=== PATIENT | female | born 1995 | race Caucasian/White ===

== ENCOUNTER 2020-02-19 09:31 | Outpatient (CLI) | payer OTHER, SELFPAY ==
[2020-02-19 10:51] LABS: SARS-CoV-2 Ag Negative (Negative)
== END 2020-02-19 09:32 | disposition home or self-care (01) ==
PROVIDERS: PCP Family Medicine; Visit Provider Family Medicine
DX: J00 Acute nasopharyngitis [common cold] (principal); Z20.828 Contact with and (suspected) exposure to other viral communicable diseases
CPT/HCPCS: 87426

== ENCOUNTER → 2021-06-02 14:21 | Outpatient (CLI) | payer OTHER, SELFPAY ==
--- NOTE | ~2021-06-02 | US_ITS ---
US OB limited 06/02/2021 15:07 Indication: Low-lying placenta Procedure: Real-time Limited obstetrical ultrasound Comparison: No prior studies for comparison Findings: There is a single living intrauterine in vertex presentation. Placenta is anterio r measuring 5 cm to the cervix. Amniotic fluid is subjectively normal. heart rate is 149 BPM. Impression: 1: Anterior placenta measuring 5 cm from the cervix. No evidence for previa. Reviewed, dictated and finalized at location A. AL SHELTER CLERK Impression: 1: Anterior placenta measuring 5 cm from the cervix. No evidence for previa.
== END ==
PROVIDERS: Visit Provider Obstetrics & Gynecology
DX: O44.42 Low lying placenta NOS or without hemorrhage, second trimester (principal); Z3A.24 24 weeks gestation of pregnancy
CPT/HCPCS: 76815

== ENCOUNTER 2021-06-14 09:07 | Outpatient (CLI) | payer OTHER, SELFPAY ==
[2021-06-14 18:39] LABS: Basophils Percent Auto 0.3 % (0.2-1.2); Eosinophils Absolute Auto 0.1 K/mm3 (0-0.3); Eosinophils Percent Auto 0.7 % (0-4.4); Hematocrit 37.4 % (37.0-47.0); Hemoglobin 12.2 g/dL (12.0-15.0); Immature Granulocyte Absolute 0.03 K/mm3 (0.00-0.031); Immature Granulocyte Percent A 0.4 % (0-0.5); Lymphocytes Absolute Auto 1.55 K/mm3 (0.9-3.2); Lymphocytes Percent Auto 20.7 % (18.3-44.2); Mean Corpuscular HGB Conc 32.6 g/dl (32-36); Mean Corpuscular Hemoglobin 30.3 pg (26-34); Mean Corpuscular Volume 92.8 fl (80-100); Mean Platelet Volume 9.9 fl (7.4-10.4); Monocytes Absolute Auto 0.5 K/mm3 (0.1-0.6); Monocytes Percent Auto 6.9 % (2.6-8.5); Neutrophils Absolute Auto 5.3 K/mm3 (1.3-6.7); Platelet Count Result 315 k/mm3 (150-375); Red Blood Count 4.03 M/mm3 (4.2-5.4); Red Cell Distribution Width 13.8 % (11.5-14.5); White Blood Count 7.5 K/mm3 (4.5-10.0)
[2021-06-14 19:10] LABS: Glucose 1 Hour PP 50gm Dose 144 mg/dL
[2021-06-14 19:51] LABS: HIV 1/2 Ab P24 Ag Result Negative (Negative)
[2021-06-15 09:07] LABS: Rapid Plasma Reagin Non-Reactive (NonReactive)
== END 2021-06-14 09:08 | disposition home or self-care (01) ==
LOC: ANHBWCLAB 09:08
PROVIDERS: Visit Provider Obstetrics & Gynecology
DX: Z34.93 Encounter for supervision of normal pregnancy, unspecified, third trimester (principal); Z3A.28 28 weeks gestation of pregnancy
CPT/HCPCS: 36415; 82947; 85025; 86592; 86703; G0432

== ENCOUNTER 2021-06-24 13:43 | Outpatient (CLI) | payer OTHER, SELFPAY ==
[2021-06-24 14:20] LABS: Glucose Fasting Gestational 83 mg/dL (>/=95)
[2021-06-24 15:34] LABS: Glucose 1 Hour Gest 124 mg/dL (>/=180)
[2021-06-24 16:36] LABS: Glucose 2 Hour Gest 123 mg/dL (>/= 155)
[2021-06-24 17:53] LABS: Glucose 3 Hour Gest 138 mg/dL (>/=140)
== END 2021-06-24 13:44 | disposition home or self-care (01) ==
LOC: ANHLAB 13:45
PROVIDERS: Visit Provider Obstetrics & Gynecology
DX: R73.09 Other abnormal glucose (principal)
CPT/HCPCS: 36415; 82951; 82952

== ENCOUNTER 2021-07-29 13:26 | Outpatient (CLI) | payer OTHER, SELFPAY ==
[2021-07-29 17:43] LABS: Hematocrit 37.1 % (37.0-47.0); Mean Corpuscular HGB Conc 32.3 g/dl (32-36); Mean Corpuscular Hemoglobin 29.9 pg (26-34); Mean Corpuscular Volume 92.3 fl (80-100); Platelet Count Result 256 k/mm3 (150-375); Red Blood Count 4.02 M/mm3 (4.2-5.4); Red Cell Distribution Width 13.5 % (11.5-14.5); White Blood Count 5.4 K/mm3 (4.5-10.0)
== END 2021-07-29 13:27 | disposition home or self-care (01) ==
LOC: ANHBWCLAB 13:28
PROVIDERS: Visit Provider Student in an Organized Health Care Education/Training Program
DX: Z34.03 Encounter for supervision of normal first pregnancy, third trimester (principal); Z3A.00 Weeks of gestation of pregnancy not specified
CPT/HCPCS: 36415; 85027

== ENCOUNTER 2021-08-19 12:14 | Inpatient (IN) | payer OTHER, SELFPAY ==
[2021-08-19] VITALS (54 sets, daily range): BP systolic 73–144; BP diastolic 43–122; PULSE 73–184; TEMP 36.2–36.6; O2SAT 98–100; BMI 44.5
[2021-08-19 13:44] LABS: Basophils Percent Auto 0.1 % (0.2-1.2); Eosinophils Percent Auto 0.4 % (0-4.4); Hematocrit 36.4 % (37.0-47.0); Hemoglobin 12.3 g/dL (12.0-15.0); Immature Granulocyte Absolute 0.02 K/mm3 (0.00-0.031); Immature Granulocyte Percent A 0.3 % (0-0.5); Lymphocytes Absolute Auto 1.84 K/mm3 (0.9-3.2); Lymphocytes Percent Auto 27.4 % (18.3-44.2); Mean Corpuscular HGB Conc 33.8 g/dl (32-36); Mean Corpuscular Hemoglobin 29.8 pg (26-34); Mean Corpuscular Volume 88.1 fl (80-100); Mean Platelet Volume 9.7 fl (7.4-10.4); Monocytes Absolute Auto 0.7 K/mm3 (0.1-0.6); Neutrophils Absolute Auto 4.2 K/mm3 (1.3-6.7); Neutrophils Percent Auto 61.8 % (45.5-73.1); Platelet Count Result 288 k/mm3 (150-375); Red Blood Count 4.13 M/mm3 (4.2-5.4); Red Cell Distribution Width 13.2 % (11.5-14.5); White Blood Count 6.7 K/mm3 (4.5-10.0)
--- NOTE | 2021-08-19 14:02 | LDADM ---
This patient, Brie Conde, was admitted to Labor/Delivery/Recovery 105 on 08/19/21 at 12:14. Plans for labor, pain management and were discussed with patient. Patient/family oriented to hospital policies and general routines including ID bracelet, bed and alarms, visiting hours, pain management, procedures, bathroom and other care routines, personal items, smoking policy, room service/diet and guest tray routines, infant security routines, and visiting hours. Patient/Family are encouraged to report perceived risks to care and to ask questions if they do not understand what they are told or what they should do. See OBIX for further documentation.
[2021-08-19] MEDS: LACTATED RINGERS 1,000 ML 125 ML IV CONT ×2 (15:13→20:49)
[2021-08-19] MEDS: OXYTOCIN 30 UNITS/NS 500 ML 30 UNITS/500 ML BAG IV CONT (15:13)
--- NOTE | 2021-08-19 16:20 | PM.IMHP ---
H&P: HPI History of Present Illness Date/Time: 08/19/21 16:20 Patient 25-year-old LMP 11/30/2020 currently 37 weeks 3 days gestation with IRAJ 09/06/2021. Patient is dated by LMP consistent with ultrasound on 01/18/2021 at 7 weeks gestation. Patient presented to labor and delivery with complaints of leakage of fluid. Patient reports noticing leakage of fluid at approximately 9:00 a.m. Clear fluid noted. She denies any contractions or vaginal bleeding. Reports good movement. Upon presentation to labor and delivery, patient was noted to be grossly ruptured and approximately 1 cm dilated. Decision was made to admit patient to labor and delivery.. Chief Complaint: IUP at 37w3d gestation PROM Review of Systems Review of Systems: All systems reviewed & are unremarkable except as noted in HPI and below Constitutional: Constitutional: Reports as per HPI, Reports no additional constitutional complaints, Denies chills, Denies fever(s), Denies headache(s) and Denies night sweats Eyes: Eyes: Reports as per HPI and Reports no additional eye complaints ENT: Reports system reviewed and no additional complaints, except as documented, Reports as per HPI, Reports Normal hearing present and Denies headache(s) Cardiovascular: Cardiovascular: Reports as per HPI, Reports no additional cardiovascular complaints, Denies chest pain and Denies dyspnea Respiratory: Respiratory: Reports as per HPI, Reports no additional respiratory complaints, Denies cough and Denies dyspnea Gastrointestinal: Gastrointestinal: Reports as per HPI, Reports no additional gastrointestinal complaints, Denies abdominal pain, Denies change in bowel habits, Denies change in stool character, Denies nausea and Denies vomiting Genitourinary: Genitourinary: Reports no additional female genitourinary complaints, Reports as per HPI, Denies abnormal vaginal bleeding, Denies genital lesions, Denies hot flashes, Denies dyspareunia, Denies pelvic pain, Denies sexual dysfunction, Denies urinary incontinence, Denies vaginal discharge, Denies vaginal dryness and Denies vaginal odor Musculoskeletal: Musculoskeletal: Reports no additional musculoskeletal complaints and Reports as per HPI Integumentary/Breasts: Skin/Breast: Reports system reviewed and no additional complaints, except as docu, Reports as per HPI, Denies breast pain and Denies nipple discharge Neurologic: Reports system reviewed and no additional complaints, except as documented, Reports as per HPI, Reports Normal hearing present and Denies headache(s) Psychiatric: Psychiatric: Reports no additional psychiatric complaints, Reports as per HPI, Denies anxiety and Denies depression Endocrine: Endocrine: Reports no additional endocrine complaints and Reports as per HPI Hematologic/Lymphatic: Hematologic/Lymphatic: Reports no additional hematologic/lymphatic complaints and Reports as per HPI Allergic/Immunologic: Allergic/Immunologic: Reports no additional allergic/immunologic complaints and Reports as per HPI [facility] Surgical History Surgical History History of cholecystectomy 2012? Family History Family History Father Hypertension Social History Social History Smoking status: Never smoker Second hand tobacco smoke exposure: No Alcohol intake: never Substance use: never Spiritual care concerns: No Meds Home Medications and Allergies Home Medications Medication Instructions Recorded Confirmed Type vit with calcium-iron 1 tablet PO DAILY 01/27/21 08/13/21 History fum-folic acid 27 mg-1 mg tablet famotidine 20 mg tablet 20 mg PO DAILY 02/21/21 08/13/21 History cholecalciferol (vitamin D3) 125 125 mcg PO DAILY 03/22/21 08/13/21 History mcg (5,000 unit) capsule diphenhydramine HCl 25 mg capsule 25 mg PO TID PRN 03/22/21 08/13/21 History
--- NOTE | 2021-08-19 16:24 | WPDHPUPDATE1 ---
History and Physical Update Update Date/Time: 08/19/21 16:24 History and Physical has been reviewed, including an updated exam of the patient. There are NO changes in the patient's condition. Risks, benefits, and alternatives have been discussed and questions answered. Patient agrees to proceed with procedure.
--- NOTE | 2021-08-19 18:31 | WPDANESEPP ---
Anes - Eval Pre Procedure Procedure: Labor epidural Date/Time: 08/19/21 18:31 Surgeon: Jatinder Preop Diagnosis: Abd pain with contractions Pre Op Diagnosis: Ruptured Membrane Patient Data Age: 25 Gender: F Height: 1.7 m Weight: 129 kg Last Vital Signs Temp 97.4 F L 08/19/21 18:16 Pulse 99 08/19/21 18:16 BP 122/88 08/19/21 18:16 Allergies Allergy/AdvReac Type Severity Reaction Status Date / Time No Known Allergies Allergy Verified 08/18/21 08:07 Home Medications Medication Instructions Recorded Confirmed Type famotidine 20 mg tablet (Pepcid) 20 mg PO DAILY 02/21/21 08/13/21 History cholecalciferol (vitamin D3) 125 125 mcg PO DAILY 03/22/21 08/13/21 History mcg (5,000 unit) capsule docusate sodium 100 mg capsule 100 mg PO BID PRN Constipation #60 08/22/21 Rx caps ferrous sulfate 325 mg (65 mg 325 mg PO BID #60 tabs 08/22/21 Rx iron) tablet Laboratory Tests 08/19/21 08/19/21 08/19/21 13:37 13:37 13:37 WBC 6.7 K/mm3 K/mm3 (4.5-10.0) RBC 4.13 M/mm3 L M/mm3 (4.2-5.4) Hgb 12.3 g/dL g/dL (12.0-15.0) Hct 36.4 % L % (37.0-47.0) MCV 88.1 fl fl (80-100) MCH 29.8 pg pg (26-34) MCHC 33.8 g/dl g/dl (32-36) RDW 13.2 % % (11.5-14.5) Plt Count 288 k/mm3 k/mm3 (150-375) MPV 9.7 fl fl (7.4-10.4) Immature Gran % (Auto) 0.3 % % (0-0.5) Neut % (Auto) 61.8 % % (45.5-73.1) Lymph % (Auto) 27.4 % % (18.3-44.2) [place] % (Auto) 10.0 % H % (2.6-8.5) Eos % (Auto) 0.4 % % (0-4.4) Baso % (Auto) 0.1 % L % (0.2-1.2) Lymph # (Auto) 1.84 K/mm3 K/mm3 (0.9-3.2) [place] # (Auto) 0.7 K/mm3 H K/mm3 (0.1-0.6) Eos # (Auto) 0.0 K/mm3 K/mm3 (0-0.3) Baso # (Auto) 0.0 K/mm3 K/mm3 (0.0-0.1) Abs Immat Gran (auto) 0.02 K/mm3 K/mm3 (0.00-0.031) Absolute Neuts (auto) 4.2 K/mm3 K/mm3 (1.3-6.7) Absolute Nucleated RBC 0.0 K/mm3 K/mm3 (0.0-0.012) Nucleated RBC % 0.0 % % (0.0-0.2) RPR Pending Blood Type O Positive Antibody Screen Negative Patient hx anesthesia problems: none Family hx anesthesia problems: none Results Review: All pre-operative results and documents have been reviewed as part of the pre-operative evaluation. [facility] Past Medical History Medical History (Updated 08/22/21 @ 09:06 by Hay Ybarra MD) Morbid obesity Obesity affecting and not yet delivered Surgical History Surgical History History of cholecystectomy 2012? Family History Family History Father Hypertension Social History Social History Smoking status: Never smoker Second hand tobacco smoke exposure: No Alcohol intake: never Substance use: never Spiritual care concerns: No Exam Day of Procedure 08/19/21 18:31
[2021-08-19] MEDS: fentaNYL CITRATE INJ (*CRX) 100 MCG/2 ML VIAL 50 MCG IV PUSH ×2 (20:49→21:12)
[2021-08-19] MEDS: ONDANSETRON INJ 4 MG/2 ML VIAL IV PUSH (23:06)
[2021-08-20] VITALS (72 sets, daily range): BP systolic 79–149; BP diastolic 45–95; PULSE 68–127; RESP 14–20; TEMP 36.2–36.9; O2SAT 96–100
[2021-08-20] MEDS: AMPICILLIN 2 GM/NS 100 ML 2 GM/100 ML BAG IVPB (03:12)
[2021-08-20] MEDS: FAMOTIDINE 20 MG/2 ML VIAL IV PUSH (04:47)
[2021-08-20] MEDS: METHYLERGONOVINE MALEATE 0.2 MG/ML VIAL IM (06:10)
[2021-08-20] MEDS: miSOPROStol 200 MCG TABLET 1000 MCG RECTAL (06:13)
[2021-08-20] MEDS: TRANEXAMIC ACID 1,000 MG/10 ML AMPUL 1000 MG IV PUSH (06:17)
[2021-08-20] MEDS: fentaNYL CITRATE INJ (*CRX) 100 MCG/2 ML VIAL IV PUSH (06:17)
[2021-08-20 06:37] LABS: Basophils Percent Auto 0.2 % (0.2-1.2); Hematocrit 35.1 % (37.0-47.0); Hemoglobin 11.6 g/dL (12.0-15.0); Immature Granulocyte Absolute 0.05 K/mm3 (0.00-0.031); Immature Granulocyte Percent A 0.5 % (0-0.5); Lymphocytes Absolute Auto 1.39 K/mm3 (0.9-3.2); Lymphocytes Percent Auto 14.3 % (18.3-44.2); Mean Corpuscular Hemoglobin 29.7 pg (26-34); Mean Platelet Volume 9.8 fl (7.4-10.4); Monocytes Absolute Auto 0.9 K/mm3 (0.1-0.6); Monocytes Percent Auto 8.8 % (2.6-8.5); Neutrophils Absolute Auto 7.4 K/mm3 (1.3-6.7); Neutrophils Percent Auto 76.2 % (45.5-73.1); Platelet Count Result 273 k/mm3 (150-375); Red Cell Distribution Width 13.3 % (11.5-14.5); White Blood Count 9.7 K/mm3 (4.5-10.0)
[2021-08-20 06:47] LABS: INR 1.1; Prothrombin Time 14.1 Seconds (11.1-14.7)
[2021-08-20 06:48] LABS: Fibrinogen 567 mg/dl (215-510); Partial Thromboplastin Time 30.8 SECONDS (22.3-36.8)
--- NOTE | 2021-08-20 07:10 | PM.OBPRVD ---
OB - Delivery Note Procedure Delivery date: 08/20/21 Procedure: Spontaneous vaginal delivery Delivery augmentation: Pitocin Delivery monitor: External FHT, External Uterine and Internal Uterine Route of delivery: Specimen: Yes (Placenta) Quantitative Blood Loss (ml): 1,449 Anesthesia type: Epidural Disposition: Other Complications: hemorrhage Narrative: Patient admitted to L and D after confirmation of gross rupture of membranes. Cervix on admission 1cm. No active labor by 6 hours from rupture of membranes. Pitocin augmentation started. She had IUPC placed. She progressed to active labor. She progressed to complete. She delivered a female . Placenta delivered spontaneously and intact. Her uterine tone was not optimal and she had bleeding despite uterine massage and Pitocin. She was given Methergine 0.2mg IM, initially tone improved for a short period. The uterus was swiped and clot was removed. She was given 1000ug cytotec rectally. The cervix was inspected and no obvious laceration visualized. She continued to have bleeding. Hemorrhage team activated. TXA was administered. Fentanyl was given for pain control and a currettage with Reuben jimenez performed. Clot obtained. Uterus intermittent boggy. Bleeding continued. Bakri balloon was placed able to instill 150cc. Bleeding improved but still oozing. CBC and coags drawn. She was recommended to be taken to OR for currettage. Discussed risk benefit of currettage and risk of hysterectomy, she agreed to procedure. Baby Date of : 08/20/21 Time of : 05:57 Weeks of gestation at delivery: 37 Infant gender: Female Weight (pounds): 7 Weight (ounces): 10 presentation: compound (right hand) position: Right Occiput Anterior Placenta delivery description: Spontaneous, Uterine Exploration and Curettage Cord Vessel Description: Around Extremity (once around leg) score one minute: 8 score five minutes: 9
[2021-08-20] MEDS: LACTATED RINGERS 1,000 ML 125 ML IV CONT (07:16)
[2021-08-20] MEDS: TRANEXAMIC ACID 1,000MG/ISO100 1,000 MG/100 ML BAG 600 MG IVPB (08:08)
[2021-08-20] MEDS: ceFAZolin 3 GM/D5W 100 ML 100 ML IVPB (08:11)
--- NOTE | 2021-08-20 08:50 | W.PM.PROC2 ---
Procedure Note - Detailed Date of Procedure 08/20/21 Pre-op Diagnosis hemorrhage Post-op Diagnosis Same Procedure Performed Suction dilation and currettage Surgeon Hay Ybarra MD Anesthesia Epidural Indications hemorrhage Findings Possible retained fragment placenta Description of Procedure After informed consent was obtained. Patient was taken to the OR and adequate epidural anesthesia was administered. She was placed in high lithotomy position and prepped and draped in sterile fashion. The Bakri balloon was removed. Weighted speculum and retractors placed in vagina. Once adequate visualization obtained the anterior lip of cervix grasped with ring forceps and posterior cervix grasped with ring forceps. The currettage was passed and there was adherent clot/tissue posterior with several passes. The suction currette was passed three times and tissue obtained and then there was improvement of tone and minimal bleeding. The cervix was inspected, no laceration. There was a linear area of bleeding on right outer vaginal wall where the retractor was and hemostasis obtained with several figure of eight sutures of 3.0 vicryl. Cervix inspected again. Hemostasis noted. No active bleeding. External uterine fundal massage and minimal bleeding. Uterus firm. Patient tolerated procedure well. Estimated Blood Loss 100 IV Fluids 700 Urine Output 125 Drains No Packing No Pathology Yes (Retained tissue) Complications No immediate complications Condition Stable Disposition PACU [facility] Billing Surgery - Charge Forward: Surgery Billing
[2021-08-20] MEDS: LACTATED RINGERS 1,000 ML 30 ML IV CONT (08:56)
--- NOTE | 2021-08-20 08:59 | SUR.OPER ---
rivas pad checked end of surgery per surgeon 1 area light pink on pad. uterus at umbilicous.
--- NOTE | 2021-08-20 09:24 | SUR.OPER ---
ebl 100 urine 150ml yellow clear
[2021-08-20] MEDS: METHYLERGONOVINE MALEATE 0.2 MG TABLET PO ×3 (09:45→21:28)
--- NOTE | 2021-08-20 10:56 | OBPPTRN ---
1008 Patient transferred to post room #292 via bed. Support person present. Oriented to unit, room, information board, rooming in, admission packet and security measures. Patient verbalizes understanding.
[2021-08-20] MEDS: ACETAMINOPHEN 325 MG TABLET 650 MG PO (13:33)
[2021-08-20 13:57] LABS: Hematocrit 27.5 % (37.0-47.0); Mean Corpuscular HGB Conc 32.7 g/dl (32-36); Mean Corpuscular Hemoglobin 29.6 pg (26-34); Mean Corpuscular Volume 90.5 fl (80-100); Mean Platelet Volume 10.1 fl (7.4-10.4); Platelet Count Result 257 k/mm3 (150-375); Red Blood Count 3.04 M/mm3 (4.2-5.4); Red Cell Distribution Width 13.3 % (11.5-14.5); White Blood Count 12.9 K/mm3 (4.5-10.0)
[2021-08-20] MEDS: POLYSACCHARIDE IRON COMPLEX 150 MG CAPSULE PO (16:18)
[2021-08-20] MEDS: DOCUSATE SODIUM 100 MG CAPSULE PO (16:18)
[2021-08-20] MEDS: IBUPROFEN 600 MG TABLET PO (16:25)
[2021-08-20] MEDS: WITCH HAZEL 40 PADS 1 PAD TOPICAL (16:27)
[2021-08-20] MEDS: BENZOCAINE 20% AER SPR (*SP) 56 GM CAN 1 SPRAY TOPICAL (16:27)
[2021-08-21 04:10] VITALS: BP 110/51; PULSE 103; RESP 16; TEMP 36.6
[2021-08-21] MEDS: IBUPROFEN 600 MG TABLET PO (04:23)
[2021-08-21 04:38] LABS: Hematocrit 23.3 % (37.0-47.0); Hemoglobin 7.5 g/dL (12.0-15.0)
--- NOTE | 2021-08-21 09:16 | P.PNOB_ITS ---
OB - PN: Subj Subjective Date/time seen: 08/21/21 09:16 She has ambulated no dizziness. Lochia light. No leg pain or chest pain or SOB. Has fatigue. Patient comments: pain well controlled, tolerating diet and other (Decreasing lochia.) baby status: doing well OB - PN: Obj Data Labs CBC & Chem 7: 08/21/21 04:16 Labs: Laboratory Results - last 24 hr 08/20/21 08/21/21 13:42 04:16 WBC 12.9 H RBC 3.04 L Hgb 9.0 L 7.5 L Hct 27.5 L 23.3 L MCV 90.5 MCH 29.6 MCHC 32.7 RDW 13.3 Plt Count 257 MPV 10.1 OB - PN A/P Assessment and Plan (1) Delivery normal: Code(s): O80 - Encounter for full-term uncomplicated delivery Status: Acute Assessment and Plan: PPD 1 doing well. (2) hemorrhage: Code(s): O72.1 - Other immediate hemorrhage Status: Acute Assessment and Plan: Normal lochia. No active bleeding. (3) Anemia: Code(s): D64.9 - Anemia, unspecified Status: Acute Assessment and Plan: Asymptomatic. Continue iron supplementation. Plan day: 1 Plan: routine care Comments: Patient doing well. Time Spent With Patient Time: Total time spent is greater than 50% in coordination of care (as document ed) at patient's floor/unit and/or counseling patient: Exam Psych: Affect: normal affect Other: Abd: fundus firm below umbilicus, appropriate tenderness Perineum: healing Ext: nontender
[2021-08-21] MEDS: DOCUSATE SODIUM 100 MG CAPSULE PO ×2 (09:27→16:05)
[2021-08-21] MEDS: POLYSACCHARIDE IRON COMPLEX 150 MG CAPSULE PO ×2 (09:27→16:05)
[2021-08-21 09:30] VITALS: BP 100/57; PULSE 96; RESP 16; TEMP 36.7; O2SAT 100; O2SAT 99
[2021-08-21] MEDS: ACETAMINOPHEN 325 MG TABLET 650 MG PO (17:21)
--- NOTE | 2021-08-21 17:54 | PC.NURSE ---
3980 Patient viewed the discharge video Mother & Baby Care, The First Two Weeks . Patient was given the opportunity and encouraged to ask questions. Patient verbalized understanding of information shared and has been given the mother/baby guide for home reference.
[2021-08-21 18:40] VITALS: BP 120/60; PULSE 90; RESP 16; TEMP 36.2; O2SAT 100
[2021-08-22 06:16] LABS: Rapid Plasma Reagin Non-Reactive (NonReactive)
[2021-08-22 08:00] VITALS: BP 107/63; PULSE 87; RESP 16; TEMP 36.2; O2SAT 99
[2021-08-22] MEDS: MEASLES,MUMPS,RUBELLA VACCINE 0.5 ML VIAL SUB-Q (08:15)
[2021-08-22] MEDS: DOCUSATE SODIUM 100 MG CAPSULE PO ×2 (08:16→16:07)
[2021-08-22] MEDS: ACETAMINOPHEN 325 MG TABLET 650 MG PO (08:16)
[2021-08-22] MEDS: POLYSACCHARIDE IRON COMPLEX 150 MG CAPSULE PO ×2 (08:16→16:06)
--- NOTE | 2021-08-22 09:03 | PM.OBPNVD ---
OB - PN: Subj Subjective Date/time seen: 08/22/21 09:03 She states she feels good. Ambulating well, no lightheadedness or dizziness, mild lochia. No leg pain, no abdominal pain. Patient comments: pain well controlled, tolerating diet and other (Decreasing lochia.) baby status: doing well OB - PN: Obj Data Labs CBC & Chem 7: 08/21/21 04:16 Labs: Laboratory Results - last 24 hr 08/19/21 13:37 RPR Non-reactive OB - PN A/P Plan Plan: routine care Comments: Patient doing well. PPD2. Asymptomatic anemia. Iron therapy. Will discharge home today. Discharge precautions discussed. Time Spent With Patient Time: Total time spent is greater than 50% in coordination of care (as documented) at patient's floor/unit and/or counseling patient: Exam Psych: Affect: normal affect Other: Abd: fundus firm below umbilicus, nontender Perineum: healing Ext: nontender
--- NOTE | 2021-08-22 09:05 | PM.OBDSVD ---
DS: Admitting Diagnosis Discharge Date 08/22/21 Admitting Diagnosis Premature rupture of membranes DS: Discharge Diagnosis Discharge Diagnosis (1) Delivery normal: Code(s): O80 - Encounter for full-term uncomplicated delivery Status: Acute (2) Anemia: Code(s): D64.9 - Anemia, unspecified Status: Acute (3) hemorrhage: Code(s): O72.1 - Other immediate hemorrhage Status: Acute OB - DS: Summary Hospital Course Hospital Course: Patient admitted for Premature rupture of membranes. She had pitocin augmentation. She had a vaginal delivery complicated by hemorrhage, possible retained placenta, path pending. she did well. She had asymptomatic anemia. day 1 H/H 10/22 which was consisted with her EBL. Baby was doing well. Patient ambulating without problems, no hypovolemic symptoms. She was discharged to home on PPD2. OB Procedures : Ultrasound OB Procedures Intrapartum: Spontaneous Vag Delivery, Uterine exploration, Curettage and Retained placenta OB Procedures: : None and Curettage Peripartum Data Delivery Method: Natural Vaginal Procedures: Procedures Operation Date: 08/20/21 07:45 Actual Procedure Side Surgeon p D&C Suction and Sharp Not Applicable Hay Ybarra MD complications: none and other ( hemorrhage) Status at Discharge Functional status at discharge: independent ambulation Time Spent with Patient Time attestation: Total time spent providing and/or coordinating discharge services: Exam Const: General: cooperative Orientation/consciousness: oriented to person, oriented to place and oriented to time HENMT: General nose exam: Normal external nose present Eyes: General: appearance normal, both eyes and all related structures Resp: Effort & Inspection: normal respiratory effort GI: Inspection: normal to inspection Neuro: General: oriented to person, oriented to place and oriented to time Extrem: General: normal to inspection and no calf tenderness Psych: Appearance: grossly normal Mental Status: mental status grossly normal DS: Data Data Completed and Pending Pending studies at discharge: Pending at discharge 08/20/21 06:06 Surgical [PTH] Routine 08/20/21 08:37 Surgical [PTH] Routine Labs on day of discharge: Labs from last 24 hours 08/19/21 13:37 RPR Non-reactive Discharge Plan Discharge Attending physician on discharge: Randee Tobias Consulting providers: Pedrito Hurtado Discharging Clinician: Hay Ybarra Anticipated Discharge Date/Time: 08/22/21 09:08 Patient Disposition: Home, Self-Care Activity: may shower, no straining and pelvic rest Diet: regular Discharge Instructions: Pelvic rest for 4-6 weeks. May take over the counter Ibuprofen or Tylenol for pain. Call if saturating more than a pad an hour, leg redness, pain and swelling, temperature>100.4. No strenuous activity. Patient Instructions: Antibiotic Form Stand Alone Forms: General Discharge Information Follow-up/Referrals: Randee Tobias MD [Physician] - Call for Appointment (Follow up in two weeks) Discharge Medications: New ferrous sulfate 325 mg (65 mg iron) tablet 325 mg PO BID Qty: 60 RF: 0 docusate sodium 100 mg Capsule 100 mg PO BID PRN (Reason: Constipation) Qty: 60 RF: 0 No Action famotidine [Pepcid] 20 mg tablet 20 mg PO DAILY RF: 0 vit-iron fum-folic ac 27-1 mg tablet 1 tablet PO DAILY RF: 0 diphenhydramine HCl [Benadryl] 25 mg capsule 25 mg PO TID PRN (Reason: Cold Symptoms) RF: 0 cholecalciferol (vitamin D3) 125 mcg (5,000 unit) capsule 125 mcg PO DAILY RF: 0 Date of admission: 08/19/21 12:14 Primary Care Provider: PHYSICIAN NOT ON STAFF,NONSTAFF Admitting Provider: Randee Tobias Attending physician on admission: Randee Tobias Condition: Stable
[2021-08-22] MEDS: IBUPROFEN 600 MG TABLET PO (16:07)
[2021-08-24 10:45] VITALS: BP 111/71; PULSE 93; RESP 20; TEMP 36.6; O2SAT 100
== END 2021-08-22 16:30 | disposition home or self-care (01) | DRG 768 ==
LOC: ANHOB2 08-22 14:21 → ANHLDR 08-23 11:58 → ANHOB2 08-23 11:58
PROVIDERS: Admitting Provider Student in an Organized Health Care Education/Training Program; Visit Provider Obstetrics & Gynecology
PROC: 10E0XZZ Delivery of Products of Conception, External Approach (ICD-10-PCS; 2021-08-20 07:45)
DX: O76 Abnormality in fetal heart rate and rhythm complicating labor and delivery (principal); Z37.0 Single live birth; O72.1 Other immediate postpartum hemorrhage; O32.6XX0 Maternal care for compound presentation, not applicable or unspecified; O69.81X0 Labor and delivery complicated by cord around neck, without compression, not applicable or unspecified; Z3A.37 37 weeks gestation of pregnancy
CPT/HCPCS: 36415; 84112; 85014; 85018; 85025; 85027; 85380; 85384; 85610; 85730; 86592; 86850; 86900; 86901; 88305; 88307; 90710; A9270; J0290; J0690; J2210; J2405; J2590; J2795; J3010; J7120

== ENCOUNTER 2025-03-11 13:59 | Outpatient (CLI) | payer OTHER, SELFPAY ==
[2025-03-11 14:43] LABS: Hematocrit 36.2 % (37.0-47.0); Hemoglobin 12.2 g/dL (12.0-15.0); Mean Corpuscular HGB Conc 33.7 g/dl (32-36); Mean Corpuscular Hemoglobin 29.7 pg (26-34); Mean Corpuscular Volume 88.1 fl (80-100); Platelet Count Result 290 k/mm3 (150-375); Red Blood Count 4.11 M/mm3 (4.2-5.4); White Blood Count 7.4 K/mm3 (4.5-10.0)
[2025-03-11 15:09] LABS: Alanine Aminotransferase 12 U/L (6-35); Albumin Level 3.7 g/dL (3.5-5.1); Alkaline Phosphatase 102 U/L (38-126); Aspartate Amino Transferase 27 U/L (14-36); Bilirubin,Total 0.3 mg/dL (0.2-1.3); Total Protein 7.5 g/dL (6.3-8.2)
[2025-03-11 15:46] LABS: Syphilis IgG/IgM Antibody Non-Reactive (Nonreactive)
[2025-03-11 15:47] LABS: HIV 1/2 Ab P24 Ag Result Negative (Negative)
[2025-03-11 15:48] LABS: Hepatitis B Surface Antigen Negative (Negative)
--- OUTSIDE RECORDS SUMMARY | 2025-03-11 18:28 | XMS_ITS | Clinical Summary ---
Author Organization [facility] Address [address] [place] [id number] Phone Care Team Providers Care Supervisor Laundry Name Role Phone Unavailable Primary Care Provider Unavailabl e Social History Tobacco Use Types Packs/Day Years Used Date Smoking Tobacco: Never Assessed Comments Unknown Sex and Gender Information Value Date Recorded Sex Assigned at Not on file Legal Sex Female 10:59 AM CDT Gender Identity Not on file Sexual Orientation Not on file Plan of Treatment Health Maintenance Due Date Last Done Comments DTAP/TDAP/TD VACCINES (1 - Tdap) 2013 HEPATITIS B VACCINES (1 of 3 - 19+ 3-dose series) 09/01 HPV/Cotest (21-29) 09/25/2015 CERVICAL CANCER SCREENING 2024 HPV/Cotest (30-65) 2024 PAP SMEAR 2024 INFLUENZA VACCINE (#1) 2024 HPV VACCINES (No Doses Required) Completed Insurance [facility] OPEN ACCESS O
--- OUTSIDE RECORDS SUMMARY | 2025-03-11 18:29 | XMS_ITS | Clinical Summary ---
Author Organization [facility] Healthcare Address [address] [place] [id number] Care Team Providers Care Knifeman Name Role Phone No, Physician Primary Care Provider [phone] No, Physician Unavailable Allergies No known active allergies Medications letrozole (FEMARA) 2.5 mg tablet Take 4 tablets (10 mg total) by mouth daily 4 Active metFORMIN XR (GLUCOPHAGE XR) 500 mg 24 hr tablet Take 1 tablet (500 mg total) by mouth daily with breakfast 4 Active progesterone (PROMETRIUM) 100 mg capsule 4 Active Active Problems Problem Noted Date Diagnosed Date Uterine septum 12/22/2024 Overview (12/22/2024): 12/22/24- possible with baby on the left. Estimated Date of Delivery Comme nts Yes 07/17/2025 Based on last me nstrual period of 10/10/2024 Encounters Date Type Department Care Team Description 12/22/2024 Results Follow-Up [facility] at [address] [address] Deyanira Braga MD US Ob Under 14 Weeks 12/12/2024 8:30 AM CDT Ancillary Procedure [facility] [address] [place] [address] [address] [place] [address] Encounter to establish gestational age using ultrasound from Last 3 Months Surgical History Surgery Date Site/Laterality Comments CHOLECYSTECTOMY 2012 Family History Medical History Relation Name Comments Colon cancer Maternal Grandmother Relation Name Status Comments Maternal Grandmother Social History Tobacco Use Types Packs/Day Years Used Date Smoking Tobacco: Never Tobacco Cessation:Counseling Given: Not Answered Humiliation, Afraid, Rape, and Kick questionnair e Answer Date Recorded Within the last year, have y ou been afraid of your partner or ex-partner? No 01/21/2024 Within the last year, have y ou been humiliated or emotionally abused in other ways by your partner or ex-partner? No Within the last year, have y ou been kicked, hit, slapped, or otherwise physically hurt by your partner or ex-partner? No 01/21/2024 Within the last year, have y ou been raped or forced to have any kind of sexual activity by your partner or ex-partner? No 01/21/2024 AUDIT-C Answer Date Recorded Q1: How often do you have a drink containing alc ohol? Never 01/21/2024 Average Number of Drinks Not on file 024 Frequency of Binge Drinking Not on file 01/01 PHQ-2 Answer Date Recorded PHQ-2 Total Score (If total score is 3 or more points, staff should administer the PHQ-9) 0 01/21/2024 Personal Safety Answer Date Recorded Getting School Help Needed Not on file 06/16 Estimated Date of Delivery Comme nts Yes 07/17/2025 Based on last me nstrual period of 10/10/2024 Sex and Gender Information Value Date Recorded Sex Assigned at Not on file Legal Sex Female 2:04 PM [employer] Gender Identity Not on file Sexual Orientation Not on file Obstetrics History Para Term AB IAB SAB Ectopic Multiple Livin g Live Births 2 1 1 1 1 Date Outcome GA Total Labor Labor/2nd/3rd Weight Sex Type Anes PTL Erika A1 A5 Name Clin 08/19 Term 37w 0d F Vaginal Living Current [facility]. Summary Episode Dates Number of Fetuses Estimated Date of Delivery 12/22/2024 - Present (03/11/2025) 07/17/2025 (set by Alia Oh MA on 12/22/2024 based on Last Menstrual Period on 10/10/2024) Dating Summary Based On IRAJ GA Diff Last Menstrual Period on 10/10/2024 07/17/2025 Working Ultrasound on 12/12/2024 07/17/2025 Same [id number] Last Filed Vital Signs Vital Sign Reading Time Taken Comments Blood Pressure 118/60 01/21/2024 1:59 PM CDT Pulse - - Temperature - - Respiratory Rate - - Oxygen Saturation - - Inhaled Oxygen Concentration - - Weight 109.8 kg (242 lb) 01/21/2024 1:59 PM CDT Height 162.6 cm (5' 4) 01/21/2024 1:59 PM CDT Body Mass Index 41.54 01/21/2024 1:59 PM CDT Plan of Treatment Health Maintenance Due Date Last Done Comments Hepatitis C Screening 1994 Varicella Vaccines (1 of 2 - 13+ 2-dose series) 09/25/2007 Pneumococcal vaccine <65 (1 of 2 - PCV) 2013 Zoster Vaccine (1 of 2) 2013 HPV Vaccines (1 - 3-dose SCD M series) 2021 Covid-19 Vaccine (4 - 2024-2 6 season) 2024 06/14/2021, 06/14/2021, 05/19/2020, Additional history exists Influenza Vaccine (#1) 2024 03/16/2021 Cervical Cancer Screening 01/20/2025 01/21/2024 Depression Screening 01/20/2025 01/21/2024 Regular Well Visit/Exam 18-64 01/20/2025 01/21/2024 DTaP/Tdap/Td Vaccine (5 - Td or Tdap) 06/15/2031 06/14/2021, 12/17/2012, 08/06/2001, Additional history exists Hepatitis B Screening Completed 01/16/1997 , 03/16/1995, 1994 Procedures Procedure Name Priority Date/Time Associated Diagnosis Comments US OB UNDER 14 WEEKS Schedule Routine, Read Routine (OP Routine) 12/12/2024 8:24 AM CDT Encounter to establish gestational age using ultrasound PAP, REFLEX HPV Routine 01/21/2024 3:04 PM CDT Well woman exam from Last 3 Months or Most Recently Relevant to Health Maintenance Results * US Ob Under 14 Weeks (12/12/2024 8:24 AM CDT) Anatomical Region Laterality Modality Abdomen N/A Ultrasound 12/12/2024 9:04 AM CDT Impressions 12/22/2024 2:29 PM CDT 1. There is a single IUP at 9.0 weeks with an EDC of 07/17/24. 2. The uterus is possibly septated with the on the left. 3. The right ovary contains a simple cyst that is most likely a corpus luteum. Normal appearing left ovary. Narrative Procedure Note Deyanira Braga MD - 12/22/2024 IMPRESSION: 1. There is a single IUP at 9.0 weeks with an EDC of 07/17/24. 2. The uterus is possibly septated with the on the left. 3. The right ovary contains a simple cyst that is most likely a corpusluteum. Normal appearing left ovary. us Deyainra Braga MD IMG OB US PROCEDURE S Final Result * Pap, reflex HPV (01/21/2024 3:04 PM CDT) CLINICAL INFORMATION: Car Ashley Comment:SCREENING LMP Car Ashley Comment:[id number] Previous Pap Car Ashley Comment:NONE GIVEN Prev. Bx Car Ashley Comment:NONE GIVEN SOURCE: Car Ashley Comment:Cervix, Endocervix Pap, specimen adequacy Car Ashley Comment: Satisfactory for evaluation. Endocervical/transformation zone component present. HPV interp Car Ashley Comment: Cytology Results: Negative for intraepithelial lesion or malignancy. COMMENTS Car Ashley Comment: This Pap test has been evaluated with computer assisted technology. Electric Accounting Machine Operator Wesley Chandler Comment: LMT, CT(ASCP) CT screening location: [place] [address] [place] [address] Comment Car Ashley Comment: EXPLANATORY NOTE: The Pap is a screening test for cervical cancer. It is not a diagnostic test and is subject to false negative and false positive results. It is most reliable when a satisfactory sample, regularly obtained, is submitted with relevant clinical findings and history, and when the Pap result is evaluated along with historic and current clinical information. Thin prep 01/21/2024 3:04 PM CDT 01/22/2024 12:08 PM CDT us Deepika Rm NP LAB CYTOLOGY ORDERABLES Fin al Result Performing Organization Address City/State/[facility] Co de Phone Number [facility] [address] [place] [address] from Last 3 Months or Most Recently Relevant to Health Maintenance Insurance [facility] CHOICE PLUS [facility] [employer] [place] Care Teams Knifeman Relationship Specialty Start Date End Date No, Physician PCP - General 10/11/23 No, Physician 10/11/23
[2025-03-12 07:09] LABS: Varicella-Zoster Ab, IgG Non Reactive (Non Reactive)
== END 2025-03-11 14:00 | disposition home or self-care (01) ==
PROVIDERS: Visit Provider Obstetrics & Gynecology
DX: Z34.90 Encounter for supervision of normal pregnancy, unspecified, unspecified trimester (principal)
CPT/HCPCS: 36415; 80076; 85027; 86593; 86703; 86762; 86787; 86803; 86850; 86900; 86901; 87086; 87340; G0432